=== PATIENT | female | born 1970 | race Caucasian/White ===

== ENCOUNTER 2018-04-30 03:10 | Emergency (ER) | payer MEDICAID ==
[~2018-04-30] VITALS: Ht 160 cm; Wt 57.6 kg
[~2018-04-30 03:10] MED LIST: ABILIFY5 M1 PO; FLOVENT HF0.044 MG/1 INH; LAC PO; NPHOS PO; PREDNISONE2.5 MG PO; PROVENTIL0.09 MG/A1 INH; WELSR PO; [UNRECOGNIZED DRUG - OTHER] PO
[2018-04-30 03:16] VITALS: Ht 160 cm; Wt 57.6 kg
[2018-04-30 04:19] LABS: BASOPHIL % 0.1 % (0-2); PLATELET COUNT 275 x10^3mcL (130-400); RED CELL DISTRIBUTION WIDTH 12.6 % (11.5-14.5)
[2018-04-30 04:25] LABS: CALCIUM 8.6 mg/dL (8.5-10.1); CARBON DIOXIDE 28.6 mmol/L (21-32); CHLORIDE SERUM 104 mmol/L (98-107); CREATININE SERUM 0.7 mg/dL (0.6-1.0); GFR1 > 60 mL/min; GLUCOSE SERUM 113 mg/dL (74-106); SODIUM SERUM 140 mmol/L (136-145)
[2018-04-30 04:39] LABS: ALBUMIN 3.7 g/dL (3.4-5.0); ALKALINE PHOSPHATASE 89 U/L (46-116); ALT/SGPT 21 U/L (14-59); AST/SGOT 21 U/L (15-37); BILIRUBIN TOTAL 0.39 mg/dL (0.20-1.00); FREE T4 0.95 ng/dL (0.76-1.46); LIPASE 110 IU/L (73-393); TOTAL PROTEIN, SERUM 7.2 g/dL (6.4-8.2)
[2018-04-30 05:39] LABS: microscopic required? YES; urine erythrocyte TRACE (NEGATIVE)
[2018-04-30 05:50] LABS: AMPHETAMINE QUAL UR POSITIVE (See below)
[2018-04-30 09:19] VITALS: BP 122/76
== END 2018-04-30 09:19 | disposition home or self-care (01) ==
LOC: ED 03:10
PROVIDERS: Emergency Medicine
DX: R07.2 Precordial pain (principal); E87.6 Hypokalemia; J45.909 Unspecified asthma, uncomplicated; Z88.8 Allergy status to other drugs, medicaments and biological substances
CPT/HCPCS: 36415; 83880; 84439; 85378; G0480; Q0092; Q0162

== ENCOUNTER 2018-05-31 17:23 | Emergency (ER) | payer MEDICAID ==
[~2018-05-31] VITALS: Ht 162.6 cm; Wt 57.6 kg
[2018-05-31 17:51] VITALS: Ht 162.6 cm; Wt 57.6 kg
[2018-05-31 21:47] VITALS: BP 115/81
== END 2018-05-31 21:47 | disposition home or self-care (01) ==
LOC: ED 17:23
DX: J40 Bronchitis, not specified as acute or chronic (principal); F17.210 Nicotine dependence, cigarettes, uncomplicated; Z88.8 Allergy status to other drugs, medicaments and biological substances
CPT/HCPCS: J7613

== ENCOUNTER 2018-08-18 15:10 | Emergency (ER) | payer MEDICAID ==
[~2018-08-18] VITALS: Ht 162.6 cm; Wt 55.8 kg
[2018-08-18 15:46] VITALS: Ht 162.6 cm; Wt 55.8 kg
[2018-08-18 17:58] VITALS: BP 101/78
== END 2018-08-18 17:58 | disposition home or self-care (01) ==
LOC: ED 15:10
DX: J44.1 Chronic obstructive pulmonary disease with (acute) exacerbation (principal); J40 Bronchitis, not specified as acute or chronic
CPT/HCPCS: J7512; J7613; J7644; Q0092

== ENCOUNTER 2018-10-19 04:30 | Emergency (ER) | payer OTHER | END 2018-10-19 06:24 | disposition other institution (70) | LOC: ED 04:30 | DX: Z02.89 Encounter for other administrative examinations (principal) ==

== ENCOUNTER 2018-10-19 04:30 | Emergency (ER) | payer MEDICAID ==
[~2018-10-19] VITALS: Ht 162.6 cm; Wt 54.4 kg
[2018-10-19 04:40] VITALS: Ht 162.6 cm; Wt 54.4 kg
[2018-10-19 05:16] LABS: BASOPHIL % 0.3 % (0-2); PLATELET COUNT 292 x10^3mcL (130-400); RED CELL DISTRIBUTION WIDTH 12.9 % (11.5-14.5)
[2018-10-19 05:20] LABS: AMPHETAMINE QUAL UR POSITIVE (See below); CALCIUM 8.4 mg/dL (8.5-10.1); CARBON DIOXIDE 26.5 mmol/L (21-32); CHLORIDE SERUM 104 mmol/L (98-107); CREATININE SERUM 0.7 mg/dL (0.6-1.0); GFR1 > 60 mL/min; GLUCOSE SERUM 99 mg/dL (74-106); POTASSIUM SERUM 3.7 mmol/L (3.5-5.1); SODIUM SERUM 140 mmol/L (136-145)
[2018-10-19 05:26] LABS: ALBUMIN 3.6 g/dL (3.4-5.0); ALKALINE PHOSPHATASE 103 U/L (46-116); ALT/SGPT 29 U/L (14-59); AST/SGOT 25 U/L (15-37); BILIRUBIN TOTAL 0.57 mg/dL (0.20-1.00); TOTAL PROTEIN, SERUM 6.8 g/dL (6.4-8.2)
[2018-10-19 06:24] VITALS: BP 128/87
== END 2018-10-19 06:24 | disposition other institution (70) ==
LOC: ED 04:30
PROVIDERS: Emergency Medicine
DX: M79.10 Myalgia, unspecified site (principal); F15.10 Other stimulant abuse, uncomplicated; J45.909 Unspecified asthma, uncomplicated; M25.552 Pain in left hip; Z88.8 Allergy status to other drugs, medicaments and biological substances
CPT/HCPCS: 36415

== ENCOUNTER 2019-01-23 10:01 | Emergency (ER) | payer MEDICAID ==
[~2019-01-23] VITALS: Ht 160 cm; Wt 55.8 kg
[2019-01-23 10:04] VITALS: Ht 160 cm; Wt 55.8 kg
[2019-01-23 10:54] LABS: BASOPHIL % 0.4 % (0-2); PLATELET COUNT 251 x10^3mcL (130-400); RED CELL DISTRIBUTION WIDTH 12.2 % (11.5-14.5)
[2019-01-23 11:04] LABS: ALBUMIN 3.6 g/dL (3.4-5.0); ALKALINE PHOSPHATASE 75 U/L (46-116); ALT/SGPT 59 U/L (14-59); AST/SGOT 38 U/L (15-37); BILIRUBIN TOTAL 0.4 mg/dL (0.20-1.00); CALCIUM 8.4 mg/dL (8.5-10.1); CARBON DIOXIDE 30.9 mmol/L (21-32); CHLORIDE SERUM 109 mmol/L (98-107); CREATININE SERUM 0.7 mg/dL (0.6-1.0); GFR1 > 60 mL/min; GLUCOSE SERUM 91 mg/dL (74-106); POTASSIUM SERUM 3.7 mmol/L (3.5-5.1); SODIUM SERUM 147 mmol/L (136-145); TOTAL PROTEIN, SERUM 6.2 g/dL (6.4-8.2)
[2019-01-23 11:27] VITALS: BP 148/69
== END 2019-01-23 11:27 | disposition home or self-care (01) ==
LOC: ED 10:01
PROVIDERS: Emergency Medicine
DX: S90.425A Blister (nonthermal), left lesser toe(s), initial encounter (principal); R07.2 Precordial pain; J45.909 Unspecified asthma, uncomplicated; Z88.8 Allergy status to other drugs, medicaments and biological substances; X58.XXXA Exposure to other specified factors, initial encounter; Y93.89 Activity, other specified; Y92.89 Other specified places as the place of occurrence of the external cause; Y99.8 Other external cause status
CPT/HCPCS: 36415; Q0092

== ENCOUNTER 2019-02-03 18:30 | Emergency (ER) | payer OTHER | END 2019-02-03 20:28 | disposition other institution (70) | LOC: ED 18:30 | DX: Z02.89 Encounter for other administrative examinations (principal) ==

== ENCOUNTER 2019-02-03 18:30 | Emergency (ER) | payer MEDICAID ==
[~2019-02-03] VITALS: Ht 162.6 cm; Wt 59.9 kg
[2019-02-03 18:39] VITALS: Ht 162.6 cm; Wt 59.9 kg
[2019-02-03 20:28] VITALS: BP 138/84
== END 2019-02-03 20:28 | disposition other institution (70) ==
LOC: ED 18:30
DX: R07.89 Other chest pain (principal); H10.31 Unspecified acute conjunctivitis, right eye; N39.0 Urinary tract infection, site not specified; F15.90 Other stimulant use, unspecified, uncomplicated; J44.9 Chronic obstructive pulmonary disease, unspecified; Z88.8 Allergy status to other drugs, medicaments and biological substances
CPT/HCPCS: Q0092

== ENCOUNTER 2019-06-15 04:28 | Emergency (ER) | payer MEDICAID ==
[~2019-06-15] VITALS: Ht 160 cm; Wt 59.0 kg
[2019-06-15 04:37] VITALS: Ht 160 cm; Wt 59.0 kg
[2019-06-15 10:10] VITALS: BP 108/65
== END 2019-06-15 10:58 | disposition home or self-care (01) ==
LOC: ED 04:28
DX: J06.9 Acute upper respiratory infection, unspecified (principal); J44.9 Chronic obstructive pulmonary disease, unspecified; Z98.890 Other specified postprocedural states
CPT/HCPCS: J1885

== ENCOUNTER 2019-07-11 00:51 | Emergency (ER) | payer MEDICAID ==
[~2019-07-11] VITALS: Ht 162.6 cm; Wt 57.2 kg
[2019-07-11 00:57] VITALS: BP 150/81; Ht 162.6 cm; Wt 57.2 kg
== END 2019-07-11 02:17 | disposition other institution (70) ==
LOC: ED 00:51
DX: R05 Cough (principal); G43.909 Migraine, unspecified, not intractable, without status migrainosus; J45.909 Unspecified asthma, uncomplicated; J44.9 Chronic obstructive pulmonary disease, unspecified; Z88.8 Allergy status to other drugs, medicaments and biological substances
CPT/HCPCS: J7512; Q0092; Q0162

== ENCOUNTER 2019-07-11 00:51 | Emergency (ER) | payer OTHER | END 2019-07-11 02:17 | disposition other institution (70) | LOC: ED 00:51 | DX: Z02.89 Encounter for other administrative examinations (principal) ==

== ENCOUNTER 2019-10-07 22:35 | Emergency (ER) | payer MEDICAID ==
[~2019-10-07] VITALS: Ht 162.6 cm; Wt 54.9 kg
[2019-10-08 01:19] VITALS: BP 125/77
== END 2019-10-08 01:19 | disposition home or self-care (01) ==
LOC: ED 22:35
DX: S02.2XXA Fracture of nasal bones, initial encounter for closed fracture (principal); S00.83XA Contusion of other part of head, initial encounter; J44.9 Chronic obstructive pulmonary disease, unspecified; Z88.8 Allergy status to other drugs, medicaments and biological substances; Y04.8XXA Assault by other bodily force, initial encounter; Y93.89 Activity, other specified; Y92.89 Other specified places as the place of occurrence of the external cause; Y99.8 Other external cause status
CPT/HCPCS: J7030

== ENCOUNTER 2020-01-10 16:02 | Emergency (ER) | payer MEDICAID, SELFPAY ==
[~2020-01-10] VITALS: Ht 160 cm; Wt 56.7 kg
[2020-01-10 16:13] VITALS: Ht 160 cm; Wt 56.7 kg
[2020-01-10 18:16] VITALS: BP 100/64
== END 2020-01-10 18:16 | disposition home or self-care (01) ==
LOC: ED 16:02
DX: B34.9 Viral infection, unspecified (principal); R21 Rash and other nonspecific skin eruption; F17.210 Nicotine dependence, cigarettes, uncomplicated; J45.909 Unspecified asthma, uncomplicated; Z20.828 Contact with and (suspected) exposure to other viral communicable diseases; Z88.8 Allergy status to other drugs, medicaments and biological substances
CPT/HCPCS: Q0162; U0003-CS

== ENCOUNTER 2020-02-15 19:21 | Emergency (ER) | payer MEDICAID ==
[~2020-02-15] VITALS: Ht 160 cm; Wt 59.9 kg
[2020-02-15 19:29] VITALS: BP 108/57; Ht 160 cm; Wt 59.9 kg
== END 2020-02-15 21:20 | disposition left against medical advice (07) ==
LOC: ED 19:21
DX: Z53.21 Procedure and treatment not carried out due to patient leaving prior to being seen by health care provider (principal)

== ENCOUNTER 2020-02-15 22:11 | Emergency (ER) | payer MEDICAID ==
[~2020-02-15] VITALS: Ht 160 cm; Wt 572.4 kg
[2020-02-15 22:17] VITALS: Ht 160 cm; Wt 572.4 kg
[2020-02-15 23:51] VITALS: BP 110/80
== END 2020-02-15 23:51 | disposition home or self-care (01) ==
LOC: ED 22:11
DX: M54.5 Low back pain (principal); J45.909 Unspecified asthma, uncomplicated; Z88.8 Allergy status to other drugs, medicaments and biological substances
CPT/HCPCS: J1885

== ENCOUNTER 2020-03-31 04:40 | Emergency (ER) | payer MEDICAID ==
[~2020-03-31] VITALS: Ht 160 cm; Wt 56.7 kg
[2020-03-31 04:51] VITALS: BP 129/83; Ht 160 cm; Wt 56.7 kg
== END 2020-03-31 05:07 | disposition left against medical advice (07) ==
LOC: ED 04:40
DX: M25.571 Pain in right ankle and joints of right foot (principal); M25.561 Pain in right knee; F31.9 Bipolar disorder, unspecified; Z59.0 Homelessness; Y04.2XXA Assault by strike against or bumped into by another person, initial encounter; Y93.89 Activity, other specified; Y92.89 Other specified places as the place of occurrence of the external cause; Y99.8 Other external cause status

== ENCOUNTER 2020-04-01 14:00 | Emergency (ER) | payer OTHER ==
[~2020-04-01] VITALS: Ht 165.1 cm; Wt 56.7 kg
[2020-04-01 14:01] VITALS: BP 138/89; Ht 165.1 cm; Wt 56.7 kg
== END 2020-04-01 15:02 | disposition other institution (70) ==
LOC: ED 14:00
DX: Z02.89 Encounter for other administrative examinations (principal)

== ENCOUNTER 2020-05-13 22:45 | Emergency (ER) | payer OTHER | END 2020-05-14 00:44 | disposition other institution (70) | LOC: ED 22:45 | DX: Z02.89 Encounter for other administrative examinations (principal) ==

== ENCOUNTER 2020-05-13 22:45 | Emergency (ER) | payer MEDICAID ==
[~2020-05-13] VITALS: Ht 160 cm; Wt 59.0 kg
[2020-05-13 22:52] VITALS: BP 156/92; Ht 160 cm; Wt 59.0 kg
== END 2020-05-14 00:44 | disposition other institution (70) ==
LOC: ED 22:45
DX: S16.1XXA Strain of muscle, fascia and tendon at neck level, initial encounter (principal); S60.511A Abrasion of right hand, initial encounter; F17.210 Nicotine dependence, cigarettes, uncomplicated; J45.909 Unspecified asthma, uncomplicated; Y04.8XXA Assault by other bodily force, initial encounter; Z88.8 Allergy status to other drugs, medicaments and biological substances; Y93.89 Activity, other specified; Y92.89 Other specified places as the place of occurrence of the external cause; Y99.8 Other external cause status
CPT/HCPCS: 90715